=== PATIENT | male | born 1995 | race African-American/Black ===

== ENCOUNTER 2019-06-22 15:30 | Emergency (ER) | payer SELFPAY ==
[2019-06-22 16:36] LABS: Absolute Lymphocytes (CBC) 1.7 K/uL (0.7-4.9); Basophils % 0.7 % (0-1.3); Hematocrit 44.6 % (39.6-49.0); Lymphocytes % 38.4 % (15.3-44.8); MPV 10.5 fL (7.6-11.3); RBC Red Blood Cell Count 4.59 M/uL (4.33-5.43)
[2019-06-22 16:39] LABS: Protime INR 1.11
[2019-06-22 16:55] LABS: Barbiturates NEGATIVE (NEGATIVE); Benzodiazepines NEGATIVE (NEGATIVE); Cocaine NEGATIVE (NEGATIVE); METHAMPHETAM NEGATIVE (NEGATIVE); Methadone NEGATIVE (NEGATIVE); Opiates NEGATIVE (NEGATIVE); Phencyclidine NEGATIVE (NEGATIVE); THC Cannibis POSITIVE (NEGATIVE)
[2019-06-22 17:01] LABS: ALT/SGPT 25 U/L (12-78); AST/SGOT 25 U/L (15-37); Albumin 4.5 g/dL (3.4-5.0); Alkaline Phosphatase 101 U/L (45-117); BUN Blood Urea Nitrogen 10 mg/dL (7-18); Bicarbonate 29 mmol/L (21-32); Bilirubin Direct 0.2 mg/dL (0-0.2); Bilirubin Total 0.5 mg/dL (0.2-1.0); Glucose Level 78 mg/dL (74-106); Potassium 3.6 mmol/L (3.5-5.1); Protein, Total 8.4 g/dL (6.4-8.2); Sodium Level 141 mmol/L (136-145)
[2019-06-22 17:26] LABS: Blood Morphology Comment NOT SEEN (NOT SEEN); Platelet Estimate DECR; Urine White Blood Cell Casts OK
[2019-06-22 18:13] LABS: Urine Blood NEGATIVE (NEG); Urine Glucose NEGATIVE (NEG); Urine Protein NEGATIVE (NEG); Urine Specific Gravity 1.025 (1.005-1.030); Urine pH 6.5 (5.0-7.0)
[2019-06-22] MEDS ORDERED: ARIPiprazole 5 MG TAB ONE (18:24)
[2019-06-22] MEDS ORDERED: TRAZODONE 50 MG TABLET PO ONE (18:30)
--- NOTE | 2019-06-23 08:59 | ER ---
Nurse's Notes [facility] Name: Lizandro Miles Age: 24 yrs Sex: Male : 1995 Arrival Date: 06/22/2019 Time: 15:57 Bed 19 Private MD: Diagnosis: Bipolar disorder;Major depressive disorder, recurrent Presentation: 06/22 15:57 Presenting complaint: Patient states: Pt states "I've been having thoughts about aa5 hurting myself ever since I got out of care home back in April and they couldn't fill my Wellbutrin, they just filled my Zoloft". EMS states "the pt's girlfriend called 911 because they were arguing, pt then reported suicidal thoughts and was brought here". 15:57 Transition of care: patient was not received from another setting of care. Onset of aa5 symptoms was 2018. Risk Assessment: Do you want to hurt yourself or someone else? Patient reports desire/thoughts of hurting themselves or someone else. Provider notified. Initial Sepsis Screen: Does the patient meet any 2 criteria? No. Patient's initial sepsis screen is negative. Does the patient have a suspected source of infection? No. Patient's initial sepsis screen is negative. Care prior to arrival: None. 15:57 Acuity: RAFAEL 2 aa5 15:57 Method Of Arrival: EMS: [facility] aa5 Historical: - Allergies: 15:57 Iodine; aa5 15:57 seafood; aa5 - PMHx: 15:57 Schizophrenia; Bipolar disorder; Depression; Anxiety; aa5 - Immunization history:: Adult Immunizations up to date. - Social history:: Smoking status: Patient uses tobacco products, smokes one pack cigarettes per day. Patient uses street drugs, marijuana. - Ebola Screening: : No symptoms or risks identified at this time. Screenin:00 Abuse screen: Denies threats or abuse. Nutritional screening: No deficits noted. aa5 Tuberculosis screening: No symptoms or risk factors identified. Fall Risk None identified. Assessment: 16:00 General: Appears comfortable, Behavior is calm, cooperative. Pain: Denies pain. Neuro: aa5 Level of Consciousness is awake, alert, obeys commands, Oriented to person, place, time, situation. Cardiovascular: Heart tones S1 S2 present Rhythm is regular. Respiratory: Airway is patent Respiratory effort is even, unlabored, Respiratory pattern is regular, symmetrical. GI: Abdomen is flat, non-distended, Bowel sounds present X 4 quads. Abd is soft and non tender X 4 quads. : No signs and/or symptoms were reported regarding the genitourinary system. EENT: No signs and/or symptoms were reported regarding the EENT system. Derm: Skin is dry, Skin is normal, Skin temperature is warm. Musculoskeletal: Range of motion: intact in all extremities. 17:00 Neuro: Level of Consciousness is awake, alert, obeys commands, Oriented to person, aa5 place, time, situation. Respiratory: Airway is patent Respiratory effort is even, unlabored, Respiratory pattern is regular, symmetrical. Derm: Skin is dry, Skin is normal, Skin temperature is warm. 17:15 Reassessment: Pt's belongings given to security for safe keeping at this time (shoes, aa5 pants, shirt, wallet, and phone). Witnessed by Ayala Ortiz RN (see pt's paper chart). . 18:00 Reassessment: PA updated pt about POC, psychiatrist will evaluate patient in the aa5 morning, pt verbalizes understanding. . 19:00 Reassessment: Patient appears in no apparent distress at this time. Patient and/or family updated on plan of care and expected duration. Pain level reassessed. Patient is alert, oriented x 3, equal unlabored respirations, skin warm/dry/pink. SItter at bedside. 20:00 Reassessment: Patient appears in no apparent distress at this time. No changes from previously documented assessment. Patient and/or family updated on plan of care and expected duration. Pain level reassessed. Patient is alert, oriented x 3, equal unlabored respirations, skin warm/dry/pink. SItter at bedside. 21:00 Reassessment: Patient appears in no apparent distress at this time. No changes from previously documented assessment. Patient and/or family updated on plan of care and expected duration. Pain level reassessed. Patient is alert, oriented x 3, equal unlabored respirations, skin warm/dry/pink. Sitter at bedside. 22:00 Reassessment: Patient appears in no apparent distress at this time. No changes from previously documented assessment. Patient and/or family updated on plan of care and expected duration. Pain level reassessed. Patient is alert, oriented x 3, equal unlabored respirations, skin warm/dry/pink. Sitter at bedside, Pt sleeping well no signs of distress noted. 23:00 Reassessment: Patient appears in no apparent distress at this time. No changes from previously documented assessment. Patient and/or family updated on plan of care and expected duration. Pain level reassessed. Patient is alert, oriented x 3, equal unlabored respirations, skin warm/dry/pink. Sitter at bedside, Pt sleeping well no signs of distress noted. 06/23 00:00 Reassessment: Patient appears in no apparent distress at this time. No changes from previously documented assessment. Patient and/or family updated on plan of care and expected duration. Pain level reassessed. Patient is alert, oriented x 3, equal unlabored respirations, skin warm/dry/pink. Sitter at bedside, Pt sleeping well no signs of distress noted. 01:00 Reassessment: Patient appears in no apparent distress at this time. No changes from previously documented assessment. Patient and/or family updated on plan of care and expected duration. Pain level reassessed. Patient is alert, oriented x 3, equal unlabored respirations, skin warm/dry/pink. Sitter at bedside, Pt sleeping well no signs of distress noted. 02:00 Reassessment: Patient appears in no apparent distress at this time. No changes from previously documented assessment. Patient and/or family updated on plan of care and expected duration. Pain level reassessed. Patient is alert, oriented x 3, equal unlabored respirations, skin warm/dry/pink. SItter at bedside. 03:00 Reassessment: Patient appears in no apparent distress at this time. No changes from previously documented assessment. Patient and/or family updated on plan of care and expected duration. Pain level reassessed. Patient is alert, oriented x 3, equal unlabored respirations, skin warm/dry/pink. SItter at bedside. 04:00 Reassessment: Patient appears in no apparent distress at this time. No changes from previously documented assessment. Patient and/or family updated on plan of care and expected duration. Pain level reassessed. Patient is alert, oriented x 3, equal unlabored respirations, skin warm/dry/pink. Sitter at bedside, Pt sleeping well no signs of distress noted. 05:00 Reassessment: Patient appears in no apparent distress at this time. No changes from previously documented assessment. Patient and/or family updated on plan of care and expected duration. Pain level reassessed. Patient is alert, oriented x 3, equal unlabored respirations, skin warm/dry/pink. Sitter at bedside, Pt sleeping well no signs of distress noted. 06:00 Reassessment: Patient appears in no apparent distress at this time. No changes from previously documented assessment. Patient and/or family updated on plan of care and expected duration. Pain level reassessed. Patient is alert, oriented x 3, equal unlabored respirations, skin warm/dry/pink. Sitter at bedside, Pt sleeping well no signs of distress noted. 07:10 Reassessment: Patient appears in no apparent distress at this time. Patient and/or em family updated on plan of care and expected duration. Pain level reassessed. Patient is alert, oriented x 3, equal unlabored respirations, skin warm/dry/pink. reports feeling better than yesterday, denies feeling HI/SI, sitter at bedside. 08:30 Reassessment: received breakfast tray at this time. em 08:44 Reassessment: Patient appears in no apparent distress at this time. Dr. Padgett at em bedside. Psych: 06/22 15:57 Subjective: Delusions are denied, Hallucinations are denied Having thoughts of suicide. aa5 Objective: Patient is cooperative, Speech is normal, Affect is appropriate. Interventions: Removed personal items and placed in bag. Patient placed in hospital gown. Searched person for dangerous items. Suicide Risk Assessment: Sad Person Scale: Sex of patient: Male: Score 1 point. Age of patient: Score 1 point if patient 15-34. Depression: Score 1 point if signs of depression are present. Previous Attempt: Score 0 point if patient has not previously attempted suicide. Substance Abuse: Score 1 point if patient abuses alcohol or drugs. Rational Thinking: Score 0 point if patient has rational thinking. Social Support: Score 0 if social support is present/available. Organized Plan: Score 1 point if patient had a plan in place. Relationship: Score 0 point if patient has a spouse or domestic partner. Chronic Sickness: Score 0 point if patient does not have a chronic illness, debilitating, or severe disorder. TOTAL POINTS: If total points are 3-4, proposed clinical action is close follow-up/consider hospitalization. Safety Checks: Personal items have been removed. Door is open. Visitors are present. Patient uses marijuana. Commitment: Patient will be a voluntary commitment. Vital Signs: 16:00 BP 131 / 73; Pulse 75; Resp 16 S; Temp 98.2(O); Pulse Ox 100% on R/A; Weight 86.18 kg aa5 (R); Height 5 ft. 7 in. (170.18 cm) (R); Pain 0/10; 18:00 BP 126 / 85; Pulse 73; Resp 16 S; Pulse Ox 100% on R/A; Pain 0/10; aa5 22:00 BP 113 / 75; Pulse 68; Resp 18; Pulse Ox 99% ; 06/23 02:00 BP 115 / 65; Pulse 58; Resp 18; Pulse Ox 99% ; wh 05:00 BP 124 / 64; Pulse 60; Resp 18; Temp 97.9; Pulse Ox 99% ; Pain 0/10; cm6 09:00 BP 134 / 73; Pulse 76; Resp 17; Temp 98.3(O); Pulse Ox 98% on R/A; [facility] 06/22 16:00 Body Mass Index 29.76 (86.18 kg, 170.18 cm) [facility] ED Course: 06/22 15:57 Patient arrived in ED. 5 15:57 Jelena Adams, RN is Primary Nurse. aa5 16:00 EKG done, by java tech. reviewed by Dm Santana MD. 3 16:00 Safety checks: Items removed: yes. Door open/sign placed on door: yes. Family/friend mh5 present: no. Sitter present: Yes. Patient has correct armband on for positive identification. Placed in gown. Bed in low position. Warm blanket given. 16:04 Eliu Barry NP is PHCP. pm1 16:04 Dm Santana MD is Attending Physician. pm1 16:08 Initial lab(s) drawn, by me, held in ED. Urine collected: clean catch specimen, clear. 5 16:15 Safety checks: Items removed: yes. Door open/sign placed on door: yes. Family/friend mh5 present: no. Sitter present: Yes. 16:30 Safety checks: Items removed: yes. Door open/sign placed on door: yes. Family/friend mh5 present: no. Sitter present: Yes. 16:31 Acetaminophen Sent. mh5 16:31 Basic Metabolic Panel Sent. mh5 16:31 CBC with Diff Sent. mh5 16:31 ETOH Level Sent. mh5 16:31 Hepatic Function Sent. mh5 16:31 PT-INR Sent. mh5 16:31 Ptt, Activated Sent. mh5 16:31 Salicylate Sent. mh5 16:31 Urine Drug Screen Sent. mh5 16:31 sent to lab. mh5 16:36 Triage completed. aa5 16:45 Safety checks: Items removed: yes. Door open/sign placed on door: yes. Family/friend mh5 present: no. Sitter present: Yes. 17:00 Safety checks: Items removed: yes. Door open/sign placed on door: yes. Family/friend mh5 present: no. Sitter present: Yes. 17:15 Safety checks: Items removed: yes. Door open/sign placed on door: yes. Family/friend mh5 present: no. Sitter present: Yes. 17:30 Safety checks: Items removed: yes. Door open/sign placed on door: yes. Family/friend mh5 present: no. Sitter present: Yes. 17:45 Safety checks: Items removed: yes. Door open/sign placed on door: yes. Family/friend mh5 present: no. Sitter present: Yes. 18:00 Safety checks: Items removed: yes. Door open/sign placed on door: yes. Family/friend mh5 present: no. Sitter present: Yes. Diet: Patient given a regular meal tray. 18:15 Safety checks: Items removed: yes. Door open/sign placed on door: yes. Family/friend mh5 present: no. Sitter present: Yes. 18:30 Safety checks: Items removed: yes. Door open/sign placed on door: yes. Family/friend mh5 present: no. Sitter present: Yes. 18:45 Safety checks: Items removed: yes. Door open/sign placed on door: yes. Family/friend mh5 present: no. Sitter present: Yes. 18:51 PHCP role handed off by Eliu Barry NP kb 18:51 Casandra Wallis FNP-C is PHCP. kb 19:00 Safety checks: Items removed: yes. Door open/sign placed on door: yes. Family/friend mh5 present: yes. Sitter present: Yes. 19:00 Report given to DAVID Pina. aa5 19:08 Safety checks: Items removed: yes. Door open/sign placed on door: yes. Family/friend cm6 present: yes. Sitter present: Yes. 19:15 Arm band placed on. wh 19:23 Safety checks: Items removed: yes. Door open/sign placed on door: yes. Family/friend cm6 present: yes. Sitter present: Yes. 19:38 Safety checks: Items removed: yes. Door open/sign placed on door: yes. Family/friend cm6 present: no. Sitter present: Yes. 19:53 Safety checks: Items removed: yes. Door open/sign placed on door: yes. Family/friend cm6 present: no. Sitter present: Yes. 20:08 Safety checks: Items removed: yes. Door open/sign placed on door: yes. Family/friend cm6 present: no. Sitter present: Yes. 20:23 Safety checks: Items removed: yes. Door open/sign placed on door: yes. Family/friend cm6 present: no. Sitter present: Yes. 20:28 Safety checks: Items removed: yes. Door open/sign placed on door: yes. Family/friend cm6 present: no. Sitter present: Yes. 20:46 Safety checks: Items removed: yes. Door open/sign placed on door: yes. Family/friend cm6 present: no. Sitter present: Yes. 21:00 Safety Checks: Personal items have been removed. The door is open or patient has been cv placed in a hallway bed/chair. Sitter present at this time. 21:00 Safety checks: Items removed: yes. Door open/sign placed on door: yes. Family/friend cm6 present: no. Sitter present: Yes. 21:15 Safety Checks: Personal items have been removed. The door is open or patient has been cv placed in a hallway bed/chair. Sitter present at this time. 21:15 Safety checks: Items removed: yes. Door open/sign placed on door: yes. Family/friend cm6 present: no. Sitter present: Yes. 21:30 Safety Checks: Personal items have been removed. The door is open or patient has been cv placed in a hallway bed/chair. Sitter present at this time. 21:30 Safety checks: Items removed: yes. Door open/sign placed on door: yes. Family/friend cm6 present: no. Sitter present: Yes. 21:40 Safety Checks: Personal items have been removed. The door is open or patient has been cv placed in a hallway bed/chair. Sitter present at this time. 21:45 Safety checks: Items removed: yes. Door open/sign placed on door: yes. Family/friend cm6 present: no. Sitter present: Yes. 21:57 Safety Checks: Personal items have been removed. The door is open or patient has been cv placed in a hallway bed/chair. There are no family/friend visitors at this time Sitter present at this time. 22:00 Safety checks: Items removed: yes. Door open/sign placed on door: yes. Family/friend cm6 present: no. Sitter present: Yes. 22:14 Safety Checks: Personal items have been removed. The door is open or patient has been cv placed in a hallway bed/chair. Sitter present at this time. 22:15 Safety checks: Items removed: yes. Door open/sign placed on door: yes. Family/friend cm6 present: no. Sitter present: Yes. 22:30 Safety checks: Items removed: yes. Door open/sign placed on door: yes. Family/friend cm6 present: no. Sitter present: Yes. 22:45 Safety Checks: Personal items have been removed. The door is open or patient has been wh placed in a hallway bed/chair. There are no family/friend visitors at this time Sitter present at this time. 22:45 Safety checks: Items removed: yes. Door open/sign placed on door: yes. Family/friend cm6 present: no. Sitter present: Yes. 23:00 Safety Checks: Personal items have been removed. The door is open or patient has been wh placed in a hallway bed/chair. There are no family/friend visitors at this time Sitter present at this time. 23:00 Safety checks: Items removed: yes. Door open/sign placed on door: yes. Family/friend cm6 present: no. Sitter present: Yes. 23:15 Safety Checks: Personal items have been removed. The door is open or patient has been wh placed in a hallway bed/chair. There are no family/friend visitors at this time Sitter present at this time. 23:15 Safety checks: Items removed: yes. Door open/sign placed on door: yes. Family/friend cm6 present: no. Sitter present: Yes. 23:30 Safety Checks: Personal items have been removed. The door is open or patient has been wh placed in a hallway bed/chair. There are no family/friend visitors at this time Sitter present at this time. 23:30 Safety checks: Items removed: yes. Door open/sign placed on door: yes. Family/friend cm6 present: no. Sitter present: Yes. 23:45 Safety checks: Items removed: yes. Door open/sign placed on door: yes. Family/friend cm6 present: no. Sitter present: Yes. 23:51 Safety Checks: Personal items have been removed. The door is open or patient has been wh placed in a hallway bed/chair. There are no family/friend visitors at this time Sitter present at this time. 06/23 00:00 Safety Checks: Personal items have been removed. The door is open or patient has been wh placed in a hallway bed/chair. There are no family/friend visitors at this time Sitter present at this time. 00:00 Safety checks: Items removed: yes. Door open/sign placed on door: yes. Family/friend cm6 present: no. Sitter present: Yes. 00:15 Safety Checks: Personal items have been removed. The door is open or patient has been wh placed in a hallway bed/chair. There are no family/friend visitors at this time Sitter present at this time. 00:15 Safety checks: Items removed: yes. Door open/sign placed on door: yes. Family/friend cm6 present: no. Sitter present: Yes. 00:30 Safety Checks: Personal items have been removed. The door is open or patient has been wh placed in a hallway bed/chair. There are no family/friend visitors at this time Sitter present at this time. 00:30 Safety checks: Items removed: yes. Door open/sign placed on door: yes. Family/friend cm6 present: no. Sitter present: Yes. 00:45 Safety Checks: Personal items have been removed. The door is open or patient has been wh placed in a hallway bed/chair. There are no family/friend visitors at this time Sitter present at this time. 00:45 Safety checks: Items removed: yes. Door open/sign placed on door: yes. Family/friend cm6 present: no. Sitter present: Yes. 01:00 Safety Checks: Personal items have been removed. The door is open or patient has been wh placed in a hallway bed/chair. There are no family/friend visitors at this time Sitter present at this time. 01:00 Safety checks: Items removed: yes. Door open/sign placed on door: yes. Family/friend cm6 present: no. Sitter present: Yes. 01:15 Safety checks: Items removed: yes. Door open/sign placed on door: yes. Family/friend cm6 present: no. Sitter present: Yes. 01:30 Safety Checks: The door is open or patient has been placed in a hallway bed/chair. There are no family/friend visitors at this time Sitter present at this time. 01:30 Safety checks: Items removed: yes. Door open/sign placed on door: yes. Family/friend cm6 present: no. Sitter present: Yes. 01:45 Safety Checks: The door is open or patient has been placed in a hallway bed/chair. There are no family/friend visitors at this time Sitter present at this time. 01:45 Safety checks: Items removed: yes. Door open/sign placed on door: yes. Family/friend cm6 present: no. Sitter present: Yes. 02:00 Safety Checks: The door is open or patient has been placed in a hallway bed/chair. There are no family/friend visitors at this time Sitter present at this time. 02:00 Safety checks: Items removed: yes. Door open/sign placed on door: yes. Family/friend cm6 present: no. Sitter present: Yes. 02:12 Attending Physician role handed off by Dm Santana MD [facility] 02:12 Americo Miles MD is Attending Physician. rex 02:15 Safety Checks: The door is open or patient has been placed in a hallway bed/chair. There are no family/friend visitors at this time Sitter present at this time. 02:15 Safety checks: Items removed: yes. Door open/sign placed on door: yes. Family/friend cm6 present: no. Sitter present: Yes. 02:30 Safety Checks: The door is open or patient has been placed in a hallway bed/chair. There are no family/friend visitors at this time Sitter present at this time. 02:30 Safety checks: Items removed: yes. Door open/sign placed on door: yes. Family/friend cm6 present: no. Sitter present: Yes. 02:45 Safety Checks: The door is open or patient has been placed in a hallway bed/chair. There are no family/friend visitors at this time Sitter present at this time. 02:45 Safety checks: Items removed: yes. Door open/sign placed on door: yes. Family/friend cm6 present: no. Sitter present: Yes. 03:00 Safety Checks: The door is open or patient has been placed in a hallway bed/chair. There are no family/friend visitors at this time Sitter present at this time. 03:00 Safety checks: Items removed: yes. Door open/sign placed on door: yes. Family/friend cm6 present: no. Sitter present: Yes. 03:15 Safety Checks: The door is open or patient has been placed in a hallway bed/chair. There are no family/friend visitors at this time Sitter present at this time. 03:15 Safety checks: Items removed: yes. Door open/sign placed on door: yes. Family/friend cm6 present: no. Sitter present: Yes. 03:30 Safety Checks: The door is open or patient has been placed in a hallway bed/chair. There are no family/friend visitors at this time Sitter present at this time. 03:30 Safety checks: Items removed: yes. Door open/sign placed on door: yes. Family/friend cm6 present: no. Sitter present: Yes. 03:45 Safety Checks: The door is open or patient has been placed in a hallway bed/chair. There are no family/friend visitors at this time Sitter present at this time. 03:45 Safety checks: Items removed: yes. Door open/sign placed on door: yes. Family/friend cm6 present: no. Sitter present: Yes. 04:00 Safety Checks: The door is open or patient has been placed in a hallway bed/chair. There are no family/friend visitors at this time Sitter present at this time. 04:00 Safety checks: Items removed: yes. Door open/sign placed on door: yes. Family/friend cm6 present: no. Sitter present: Yes. 04:15 Safety Checks: The door is open or patient has been placed in a hallway bed/chair. There are no family/friend visitors at this time Sitter present at this time. 04:15 Safety checks: Items removed: yes. Door open/sign placed on door: yes. Family/friend cm6 present: no. Sitter present: Yes. 04:30 Safety Checks: The door is open or patient has been placed in a hallway bed/chair. There are no family/friend visitors at this time Sitter present at this time. 04:30 Safety checks: Items removed: yes. Door open/sign placed on door: yes. Family/friend cm6 present: no. Sitter present: Yes. 04:45 Safety checks: Items removed: yes. Door open/sign placed on door: yes. Family/friend cm6 present: no. Sitter present: Yes. 05:00 Safety checks: Items removed: yes. Door open/sign placed on door: yes. Family/friend cm6 present: no. Sitter present: Yes. 05:15 Safety checks: Items removed: yes. Door open/sign placed on door: yes. Family/friend cm6 present: no. Sitter present: Yes. 05:30 Safety checks: Items removed: yes. Door open/sign placed on door: yes. Family/friend cm6 present: no. Sitter present: Yes. 05:45 Safety checks: Items removed: yes. Door open/sign placed on door: yes. Family/friend cm6 present: no. Sitter present: Yes. 06:00 Safety checks: Items removed: yes. Door open/sign placed on door: yes. Family/friend cm6 present: no. Sitter present: Yes. 06:15 Safety checks: Items removed: yes. Door open/sign placed on door: yes. Family/friend cm6 present: no. Sitter present: Yes. 06:30 Safety checks: Items removed: yes. Door open/sign placed on door: yes. Family/friend cm6 present: no. Sitter present: Yes. 06:45 Safety checks: Items removed: yes. Door open/sign placed on door: yes. Family/friend cm6 present: no. Sitter present: Yes. 07:00 Safety checks: Items removed: yes. Door open/sign placed on door: yes. Family/friend mh5 present: no. Sitter present: Yes. 07:15 Safety checks: Items removed: yes. Door open/sign placed on door: yes. Family/friend mh5 present: no. Sitter present: Yes. 07:30 Safety checks: Items removed: yes. Door open/sign placed on door: yes. Family/friend mh5 present: no. Sitter present: Yes. 07:45 Safety checks: Items removed: yes. Door open/sign placed on door: yes. Family/friend mh5 present: no. Sitter present: Yes. 08:00 Safety checks: Items removed: yes. Door open/sign placed on door: yes. Family/friend mh5 present: yes. Sitter present: Yes. 08:15 Safety checks: Items removed: yes. Door open/sign placed on door: yes. Family/friend mh5 present: yes. Other: DR PADGETT PSYCHIATRIST IN WITH PATIENT . Sitter present: Yes. 08:30 Safety checks: Items removed: yes. Door open/sign placed on door: yes. Family/friend mh5 present: yes. Sitter present: Yes. Diet: Patient given a regular meal tray. 08:45 Safety checks: Items removed: yes. Door open/sign placed on door: yes. Family/friend mh5 present: yes. Sitter present: Yes. 08:57 [facility] role handed off by Casandra Wallis FNP-C [facility] 08:57 James Carmichael PA is PHCP. [facility] 09:00 Safety checks: Items removed: yes. Door open/sign placed on door: yes. Family/friend mh5 present: yes. Sitter present: Yes. 09:21 No provider procedures requiring assistance completed. Patient did not have IV access em during this emergency room visit. Administered Medications: 06/22 18:50 Drug: ARIPiprazole 2.5 mg Route: PO; aa5 06/23 02:41 Follow up: Response: No adverse reaction 06/22 18:51 Drug: traZODONE 50 mg Route: PO; aa5 06/23 02:41 Follow up: Response: No adverse reaction Outcome: 08:58 Discharge ordered by . stephanie 09:21 Discharged to home ambulatory, with family. em 09:21 Condition: good 09:21 Discharge instructions given to patient, family, Instructed on discharge instructions, follow up and referral plans. medication usage, Demonstrated understanding of instructions, follow-up care, medications, Prescriptions given X 3. 09:22 Patient left the ED. em Signatures: Casandra Wallis, SNUFF CONTAINER INSPECTOR-C SNUFF CONTAINER INSPECTOR-Ckb Americo Miles MD MD cha Mickail, Joel, PA PA Chato Cortez, ACCOUNT SERVICE REPRESENTATIVE ACCOUNT SERVICE REPRESENTATIVE em Jelena Adams RN RN aa5 Eliu Barry, CNC PROGRAMMER CNC PROGRAMMER pm1 Ellie Suarez 5 Susanna, Silvana Annie Harrington sm3 Kylie Hernandez cm6 Eliza Jimenez Corrections: (The following items were deleted from the chart) 06/22 17:48 16:00 Derm: Skin is pink, warm \\T\\ dry. aa5 aa5 19:27 07:23 Safety checks: Items removed: yes. Door open/sign placed on door: yes. cm6 Family/friend present: yes. Sitter present: Yes. cm6 21:20 21:17 EKG completed in triage. Results shown to MD. marilia cv 22:35 21:02 Safety checks: Items removed: yes. Door open/sign placed on door: yes. cm6 Family/friend present: no. Sitter present: Yes. cm6 06/23 06:09 05:23 Safety checks: Items removed: yes. Door open/sign placed on door: yes. cm6 Family/friend present: no. Sitter present: Yes. cm6 06:51 06:42 Safety checks: Items removed: yes. Door open/sign placed on door: yes. cm6 Family/friend present: no. Sitter present: Yes. cm6 08:45 07:10 Reassessment: Patient appears in no apparent distress at this time. Patient em and/or family updated on plan of care and expected duration. Pain level reassessed. Patient is alert, oriented x 3, equal unlabored respirations, skin warm/dry/pink. reports feeling better than yesterday, denies feeling HI/SI em 09:10 08:15 Safety checks: Items removed: yes. Door open/sign placed on door: yes. [facility] Family/friend present: yes. Sitter present: Yes. [facility]
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
[2019-06-23 09:51] VITALS: BP 134/73; TEMP 98.3; O2SAT 98
--- NOTE | 2019-06-23 11:59 | EKG ---
Test Date: 2019-06-22 Test Time: 15:50:27 Channel Specialist: ARRON MEASUREMENT RESULTS: Intervals: Rate: 71 IA: 132 QRSD: 80 QT: 342 QTc: 371 Qulin: P: 37 IA: 132 QRS: 53 T: 22 INTERPRETIVE STATEMENTS: Sinus rhythm with marked sinus arrhythmia Otherwise normal ECG No previous ECG available for comparison Electronically Signed On 06-23-19 11:57:03 SPRING PRODUCTION SUPERVISOR by Kenton Gilbert
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
== END 2019-06-23 09:22 | disposition home or self-care (01) ==
LOC: ER 15:30
DX: F33.9 Major depressive disorder, recurrent, unspecified (principal); F17.210 Nicotine dependence, cigarettes, uncomplicated; F12.99 Cannabis use, unspecified with unspecified cannabis-induced disorder; Z72.89 Other problems related to lifestyle; Z91.048 Other nonmedicinal substance allergy status
CPT/HCPCS: 36415; 80048; 80076; 80307; 80320; 80329; 81003; 85025; 85610; 85730; 93005; 99284

== ENCOUNTER 2019-07-14 15:07 | Emergency (ER) | payer SELFPAY ==
--- OUTSIDE RECORDS SUMMARY | 2019-07-14 15:09 | XMS REPORT ---
:1995 [facility] Address [address] [place] [address] Care Team Providers Name Role Phone MELANIE ANDERSON Unavailable Unavailable Problems This patient has no known problems. Allergies, Adverse Reactions, Alerts This patient has no known allergies or adverse reactions. Medications This patient has no known medications. Encounters Start End Encounter Admission Attending Care Care Encounter Date/Time Date/Time Type Type Clinicians Facility Department ID 2018-10-21 2018-10-21 Emergency [facility] [id number] 12:53:56 12:53:56 2018-10-21 2018-10-21 Emergency [facility] [id number] 11:34:31 11:34:31 2018-10-21 2018-10-21 Emergency [facility] [id number] 10:39:00 10:39:00 2018-09-05 2018-09-05 Emergency [facility] [id number] 23:07:00 23:07:00 2018-08-29 2018-08-29 Emergency [facility] [id number] 02:21:33 02:21:33 Results Test Description Test Time Test Comments Text Results Atomic Results Result Comments XR Ribs w/ PA Chest 2018-07-08 20:26:37 Patient: EDDY CARO Bilateral Date/Time07/08/2018 19:51 CSTReason for ExamInjuryReportChest and bilateral rib series, 4 imagesLOCATION CODE: R 16HISTORY: Chest painCOMPARISON: NoneFINDINGS:The heart size is normal and the lungs are clear. There is no evidence of pleural effusion, pulmonary edema or patchy lobar consolidation. The bones are intact.IMPRESSION:1. No acute cardiopulmonary disease Final Dictated by: MD Winters Roman PDictated DT/TM: 07/08/2018 8:26 pmSigned by: MD Winters Roman PSigned (Electronic Signature): 07/08/2018 8:26 pm XR Chest 1 View Frontal 2018-05-07 01:17:17 Patient: EDDY CARO Date/Time05/07/2018 01:10 CDTReason for ExamChest painReportChest, one viewLOCATION CODE: R 16HISTORY: Chest painCOMPARISON: NoneFINDINGS:The heart size is normal and the lungs are clear. There is no evidence of pleural effusion, pulmonary edema or patchy lobar consolidation.IMPRESSION:1. No acute cardiopulmonary disease Final Dictated by: MD Winters Roman PDictated DT/TM: 05/07/2018 1:17 amSigned by: MD Winters Roman PSigned (Electronic Signature): 05/07/2018 1:17 am CBC W/PLT COUNT & AUTO DIFFERENTIAL 2017-07-31 01:17:00 Test Item Value Reference Range Comments WHITE BLOOD CELL COUNT (BEAKER) (test ynjj=329) 7.3 K/ L 4.0-10.0 RED BLOOD CELL COUNT (BEAKER) (test mrqt=581) 4.59 M/ L 4.20-5.80 HEMOGLOBIN (BEAKER) (test cdnq=913) 14.5 GM/DL 13.0-16.8 HEMATOCRIT (BEAKER) (test eobz=300) 43.2 % 40.0-50.0 MEAN CORPUSCULAR VOLUME (BEAKER) (test pivp=885) 93.9 fL 82.0-98.0 MEAN CORPUSCULAR HEMOGLOBIN (BEAKER) (test lbog=191) 31.6 pg 27.0-33.0 MEAN CORPUSCULAR HEMOGLOBIN CONC (BEAKER) (test uobi=570) 33.6 GM/DL 32.0- 36.0 RED CELL DISTRIBUTION WIDTH (BEAKER) (test ktbn=320) 12.5 % 10.3-14.2 PLATELET COUNT (BEAKER) (test flpr=675) 344 K/CU MM 150-430 MEAN PLATELET VOLUME (BEAKER) (test qaue=470) 9.3 fL 6.5-10.5 (MANUAL DIFFERENTIAL)2017-07-31 01:17:00 Test Item Value Reference Range Comments NEUTROPHILS - REL (DIFF) (BEAKER) (test maob=8642) 42 % LYMPHOCYTES - REL (DIFF) (BEAKER) (test blvb=9922) 50 % MONOCYTES - REL (DIFF) (BEAKER) (test znnn=3807) 8 % NEUTROPHILS - ABS (DIFF) (BEAKER) (test ooeq=8009) 3.07 K/ L 1.80-8.00 LYMPHOCYTES - ABS (DIFF) (BEAKER) (test ufny=8129) 3.65 K/ L 1.48-4.50 MONOCYTES - ABS (DIFF) (BEAKER) (test fqub=2570) 0.58 K/ L 0.00-1.30 TOTAL COUNTED (BEAKER) (test wzpq=4606) 100 WBC MORPHOLOGY (BEAKER) (test tyzp=998) Normal PLT MORPHOLOGY (BEAKER) (test eejl=442) Normal RBC MORPHOLOGY (BEAKER) (test ejfi=819) Normal [id number] 00:34:00 Test Item Value Reference Range Comments ETHANOL (BEAKER) (test cvuw=714) < mg/dL <=10 CREATINE KINASE (CK), TOTAL AND [id number] 00:22:00 Test Item Value Reference Range Comments CREATINE KINASE TOTAL (BEAKER) (test uwyd=331) 628 U/L 40-250 CREATINE KINASE-MB (BEAKER) (test mmmw=309) 2.5 ng/mL 0.0-4.9 CREATINE KINASE-MB INDEX (BEAKER) (test uosv=795) 0.4 % CK-MB Reference Range:<5 Normal5-10 Borderline>10 AbnormalRAPID DRUG SCREEN, [id number] 00:15:00 Test Item Value Reference Range Comments BARBITURATE URINE (BEAKER) (test tqbm=702) Negative Negative BENZODIAZEPINE SCREEN URINE (BEAKER) (test Negative Negative fvut=641) COCAINE (METAB.) SCREEN (BEAKER) (test oqop=5633) Negative Negative OPIATE SCREEN URINE (BEAKER) (test uqyq=296) Negative Negative CANNABINOID SCREEN URINE (BEAKER) (test clsb=126) Positive Negative AMPH/METHAMPH SCREEN (BEAKER) (test dmrf=8159) Negative Negative PHENCYCLIDINE SCREEN URINE (BEAKER) (test qffg=187) Negative Negative DRUG CUTOFF CONC.Cocaine 300 ng/mL Cannabinoid 50 ng/mLBenzodiazepine 200 ng/mLBarbiturate 200 ng/ mLPhencyclidine 25 ng/mLOpiate 300 ng/mLMethadone 300 ng/mLAmphetamine/ 1000 ng/mL MethamphetamineThis assay provides an unconfirmed qualitative test result for the clinical management of patients in emergency situations. Chain of custody not maintained. Some fxbq-hbw-vdrwzbs medications, as well as adulterants, may cause inaccurate results. Clinical correlation should be applied. A more comprehensivedrug screen or confirmation of a detected drug may be performed upon request.ACETAMINOPHEN [id number] 00:12:00 Test Item Value Reference Range Comments ACETAMINOPHEN LEVEL (BEAKER) (test ishi=376) < ug/mL 10.0-30.0 URINALYSIS W/ [id number] 00:11:00 Test Item Value Reference Range Comments COLOR (BEAKER) (test kxfa=736) Yellow CLARITY (BEAKER) (test xrkd=961) Clear SPECIFIC GRAVITY UA (BEAKER) (test gnei=803) 1.025 1.001-1.035 PH UA (BEAKER) (test jnqk=047) 6.0 5.0-8.0 PROTEIN UA (BEAKER) (test rutj=235) Negative Negative GLUCOSE UA (BEAKER) (test wrkp=088) Negative Negative KETONES UA (BEAKER) (test vfmq=999) Negative Negative BILIRUBIN UA (BEAKER) (test dcuv=755) Negative Negative BLOOD UA (BEAKER) (test uhjt=984) Negative Negative NITRITE UA (BEAKER) (test pjmj=941) Negative Negative LEUKOCYTE ESTERASE UA (BEAKER) (test ngmg=532) Negative Negative UROBILINOGEN UA (BEAKER) (test khyt=489) 0.2 mg/dL 0.2-1.0 BACTERIA (BEAKER) (test cbbe=436) Rare RBC UA-MANUAL (BEAKER) (test kxps=5257) <5 /HPF WBC UA-MANUAL (BEAKER) (test xpga=5009) 10-20 /HPF SQUAMOUS EPITHELIAL MANUAL (BEAKER) (test <5 /HPF pjrp=5593) SOURCE(BEAKER) (test csda=5815) HEPATIC FUNCTION [id number] 00:11:00 Test Item Value Reference Range Comments TOTAL PROTEIN (BEAKER) (test 8.5 gm/dL 6.0-8.5 Specimen slightly hemolyzed zlpb=981) ALBUMIN (BEAKER) (test 4.3 g/dL 3.5-5.0 Specimen slightly hemolyzed rkvd=2262) BILIRUBIN TOTAL (BEAKER) (test 0.3 mg/dL 0.1-1.2 Specimen slightly hemolyzed rglx=427) BILIRUBIN DIRECT (BEAKER) (test 0.1 mg/dL 0.0-0.4 Specimen slightly hemolyzed qbot=799) ALKALINE PHOSPHATASE (BEAKER) 98 U/L 30-115 (test yohq=877) AST (SGOT) (BEAKER) (test 32 U/L 5-40 Specimen slightly hemolyzed botu=425) ALT (SGPT) (BEAKER) (test 24 U/L 5-50 Specimen slightly hemolyzed jfpk=327) SALICYLATE [id number] 00:11:00 Test Item Value Reference Range Comments SALICYLATE LEVEL (BEAKER) (test etse=346) 1.7 mg/dL 20.0-30.0 BASIC METABOLIC [id number] 00:09:00 Test Item Value Reference Range Comments SODIUM (BEAKER) (test 142 meq/L 135-148 zdac=228) POTASSIUM (BEAKER) (test 4.0 meq/L 3.6-5.5 Specimen slightly hqmy=328) hemolyzed CHLORIDE (BEAKER) (test 108 meq/L 98-106 qqai=943) CO2 (BEAKER) (test 21 meq/L 20-29 plkz=331) BLOOD UREA NITROGEN 10 mg/dL 10-26 (BEAKER) (test ewla=357) CREATININE (BEAKER) (test 0.90 mg/dL 0.50-1.20 Specimen slightly bksa=066) hemolyzed GLUCOSE RANDOM (BEAKER) 90 mg/dL 70-110 (test pyol=606) CALCIUM (BEAKER) (test 9.5 mg/dL 8.5-10.5 jmne=002) EGFR (BEAKER) (test 130 mL/min/1.73 sq m ESTIMATED GFR IS NOT brjy=0618) ACCURATE CREATININE CLEARANCE IN PREDICTING GLOMERULAR FILTRATION RATE. ESTIMATED GFR IS NOT APPLICABLE FOR DIALYSIS PATIENTS.
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
[2019-07-14 17:21] VITALS: BP 111/69; TEMP 98.2; O2SAT 99
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
== END 2019-07-14 16:53 | disposition home or self-care (01) ==
LOC: ER 15:07
DX: R07.9 Chest pain, unspecified (principal); Z91.09 Other allergy status, other than to drugs and biological substances; Z91.013 Allergy to seafood; F17.210 Nicotine dependence, cigarettes, uncomplicated
CPT/HCPCS: 71046; 99284

== ENCOUNTER 2019-07-28 14:31 | Inpatient (IN) | payer SELFPAY ==
--- OUTSIDE RECORDS SUMMARY | 2019-07-28 14:32 | XMS REPORT ---
:1995 [facility] Address [address] [place] [address] Care Team Providers Name Role Phone MELANIE ANDERSON Unavailable Unavailable Problems This patient has no known problems. Allergies, Adverse Reactions, Alerts This patient has no known allergies or adverse reactions. Medications This patient has no known medications. Encounters Start End Encounter Admission Attending Care Care Encounter Date/Time Date/Time Type Type Clinicians Facility Department ID 2018-10-21 2018-10-21 Emergency [facility] [id number] 12:53:56 12:53:56 2018-10-21 2018-10-21 Emergency [facility] [id number] 11:34:31 11:34:31 2018-10-21 2018-10-21 Emergency [facility] [id number] 10:39:00 10:39:00 2018-09-05 2018-09-05 Emergency [facility] [id number] 23:07:00 23:07:00 2018-08-29 2018-08-29 Emergency [facility] [id number] 02:21:33 02:21:33 Results Test Description Test Time [...] Comments WHITE BLOOD CELL COUNT (BEAKER) (test ptfi=597) 7.3 K/ L 4.0-10.0 RED BLOOD CELL COUNT (BEAKER) (test sgis=131) 4.59 M/ L 4.20-5.80 HEMOGLOBIN (BEAKER) (test bfan=848) 14.5 GM/DL 13.0-16.8 HEMATOCRIT (BEAKER) (test spae=846) 43.2 % 40.0-50.0 MEAN CORPUSCULAR VOLUME (BEAKER) (test wifi=512) 93.9 fL 82.0-98.0 MEAN CORPUSCULAR HEMOGLOBIN (BEAKER) (test pshp=544) 31.6 pg 27.0-33.0 MEAN CORPUSCULAR HEMOGLOBIN CONC (BEAKER) (test kwcx=982) 33.6 GM/DL 32.0- 36.0 RED CELL DISTRIBUTION WIDTH (BEAKER) (test rglp=220) 12.5 % 10.3-14.2 PLATELET COUNT (BEAKER) (test bvne=442) 344 K/CU MM 150-430 MEAN PLATELET VOLUME (BEAKER) (test knzn=381) 9.3 fL 6.5-10.5 (MANUAL DIFFERENTIAL)2017-07-31 01:17:00 Test Item Value Reference Range Comments NEUTROPHILS - REL (DIFF) (BEAKER) (test phaj=2644) 42 % LYMPHOCYTES - REL (DIFF) (BEAKER) (test zpth=1190) 50 % MONOCYTES - REL (DIFF) (BEAKER) (test hiss=1589) 8 % NEUTROPHILS - ABS (DIFF) (BEAKER) (test cswn=9700) 3.07 K/ L 1.80-8.00 LYMPHOCYTES - ABS (DIFF) (BEAKER) (test gequ=3203) 3.65 K/ L 1.48-4.50 MONOCYTES - ABS (DIFF) (BEAKER) (test iqob=7773) 0.58 K/ L 0.00-1.30 TOTAL COUNTED (BEAKER) (test uulr=0175) 100 WBC MORPHOLOGY (BEAKER) (test qcsb=029) Normal PLT MORPHOLOGY (BEAKER) (test wgyz=283) Normal RBC MORPHOLOGY (BEAKER) (test hyhs=385) Normal [id number] 00:34:00 Test Item Value Reference Range Comments ETHANOL (BEAKER) (test xgjk=420) < mg/dL <=10 CREATINE KINASE (CK), TOTAL AND [id number] 00:22:00 Test Item Value Reference Range Comments CREATINE KINASE TOTAL (BEAKER) (test ydum=374) 628 U/L 40-250 CREATINE KINASE-MB (BEAKER) (test cvun=203) 2.5 ng/mL 0.0-4.9 CREATINE KINASE-MB INDEX (BEAKER) (test yepy=126) 0.4 % CK-MB Reference Range:<5 Normal5-10 Borderline>10 AbnormalRAPID DRUG SCREEN, [id number] 00:15:00 Test Item Value Reference Range Comments BARBITURATE URINE (BEAKER) (test nlxq=472) Negative Negative BENZODIAZEPINE SCREEN URINE (BEAKER) (test Negative Negative nutr=288) COCAINE (METAB.) SCREEN (BEAKER) (test epcr=4004) Negative Negative OPIATE SCREEN URINE (BEAKER) (test cgcr=414) Negative Negative CANNABINOID SCREEN URINE (BEAKER) (test wmka=016) Positive Negative AMPH/METHAMPH SCREEN (BEAKER) (test tefd=4096) Negative Negative PHENCYCLIDINE SCREEN URINE (BEAKER) (test qzcn=909) Negative Negative DRUG CUTOFF CONC.Cocaine 300 ng/mL Cannabinoid 50 ng/mLBenzodiazepine 200 ng/mLBarbiturate 200 ng/ mLPhencyclidine 25 ng/mLOpiate 300 ng/mLMethadone 300 ng/mLAmphetamine/ 1000 ng/mL MethamphetamineThis assay provides an unconfirmed qualitative test result for the clinical management of patients in emergency situations. Chain of custody not maintained. Some ijwj-xku-ecoyvqs medications, as well as adulterants, may cause inaccurate results. Clinical correlation should be applied. A more comprehensivedrug screen or confirmation of a detected drug may be performed upon request.ACETAMINOPHEN [id number] 00:12:00 Test Item Value Reference Range Comments ACETAMINOPHEN LEVEL (BEAKER) (test vphs=594) < ug/mL 10.0-30.0 URINALYSIS W/ [id number] 00:11:00 Test Item Value Reference Range Comments COLOR (BEAKER) (test xkid=474) Yellow CLARITY (BEAKER) (test ryyr=171) Clear SPECIFIC GRAVITY UA (BEAKER) (test ydat=463) 1.025 1.001-1.035 PH UA (BEAKER) (test xxid=373) 6.0 5.0-8.0 PROTEIN UA (BEAKER) (test sulw=902) Negative Negative GLUCOSE UA (BEAKER) (test nxeg=500) Negative Negative KETONES UA (BEAKER) (test nvlj=119) Negative Negative BILIRUBIN UA (BEAKER) (test uxos=919) Negative Negative BLOOD UA (BEAKER) (test xkjg=038) Negative Negative NITRITE UA (BEAKER) (test nxrb=402) Negative Negative LEUKOCYTE ESTERASE UA (BEAKER) (test ohek=756) Negative Negative UROBILINOGEN UA (BEAKER) (test dmbn=384) 0.2 mg/dL 0.2-1.0 BACTERIA (BEAKER) (test hvvi=010) Rare RBC UA-MANUAL (BEAKER) (test ztln=3541) <5 /HPF WBC UA-MANUAL (BEAKER) (test hoyb=9614) 10-20 /HPF SQUAMOUS EPITHELIAL MANUAL (BEAKER) (test <5 /HPF uzaf=7581) SOURCE(BEAKER) (test vuih=4325) HEPATIC FUNCTION [id number] 00:11:00 Test Item Value Reference Range Comments TOTAL PROTEIN (BEAKER) (test 8.5 gm/dL 6.0-8.5 Specimen slightly hemolyzed qsmr=609) ALBUMIN (BEAKER) (test 4.3 g/dL 3.5-5.0 Specimen slightly hemolyzed aypj=9087) BILIRUBIN TOTAL (BEAKER) (test 0.3 mg/dL 0.1-1.2 Specimen slightly hemolyzed part=128) BILIRUBIN DIRECT (BEAKER) (test 0.1 mg/dL 0.0-0.4 Specimen slightly hemolyzed rtqk=619) ALKALINE PHOSPHATASE (BEAKER) 98 U/L 30-115 (test elkj=365) AST (SGOT) (BEAKER) (test 32 U/L 5-40 Specimen slightly hemolyzed jjik=598) ALT (SGPT) (BEAKER) (test 24 U/L 5-50 Specimen slightly hemolyzed yaou=717) SALICYLATE [id number] 00:11:00 Test Item Value Reference Range Comments SALICYLATE LEVEL (BEAKER) (test lwfr=329) 1.7 mg/dL 20.0-30.0 BASIC METABOLIC [id number] 00:09:00 Test Item Value Reference Range Comments SODIUM (BEAKER) (test 142 meq/L 135-148 qssu=417) POTASSIUM (BEAKER) (test 4.0 meq/L 3.6-5.5 Specimen slightly ozny=337) hemolyzed CHLORIDE (BEAKER) (test 108 meq/L 98-106 narf=072) CO2 (BEAKER) (test 21 meq/L 20-29 ffik=664) BLOOD UREA NITROGEN 10 mg/dL 10-26 (BEAKER) (test koyb=387) CREATININE (BEAKER) (test 0.90 mg/dL 0.50-1.20 Specimen slightly cunj=620) hemolyzed GLUCOSE RANDOM (BEAKER) 90 mg/dL 70-110 (test uwat=592) CALCIUM (BEAKER) (test 9.5 mg/dL 8.5-10.5 vfqt=140) EGFR (BEAKER) (test 130 mL/min/1.73 sq m ESTIMATED GFR IS NOT ojmk=5834) ACCURATE CREATININE CLEARANCE IN PREDICTING GLOMERULAR FILTRATION RATE. ESTIMATED GFR IS NOT APPLICABLE FOR DIALYSIS PATIENTS.
[2019-07-28] MEDS ORDERED: NA CHLORIDE 0.9% 1,000 ML ONE (14:49)
[2019-07-28] MEDS ORDERED: ONDANSETRON 4 MG/2 ML VIAL ONE (14:49)
[2019-07-28 14:57] LABS: Absolute Lymphocytes (CBC) 1.4 K/uL (0.7-4.9); Basophils % 0.4 % (0-1.3); Hematocrit 42.7 % (39.6-49.0); Lymphocytes % 42.3 % (15.3-44.8); MPV 9.9 fL (7.6-11.3); RBC Red Blood Cell Count 4.38 M/uL (4.33-5.43)
[2019-07-28 15:04] LABS: Protime INR 1.02
[2019-07-28 15:27] LABS: ALT/SGPT 93 U/L (12-78); AST/SGOT 136 U/L (15-37); Albumin 3.7 g/dL (3.4-5.0); Alkaline Phosphatase 84 U/L (45-117); BUN Blood Urea Nitrogen 8 mg/dL (7-18); Bicarbonate 27 mmol/L (21-32); Bilirubin Direct 0.2 mg/dL (0-0.2); Bilirubin Total 0.4 mg/dL (0.2-1.0); Glucose Level 110 mg/dL (74-106); Potassium 4.2 mmol/L (3.5-5.1); Protein, Total 6.9 g/dL (6.4-8.2); Sodium Level 143 mmol/L (136-145)
[2019-07-28] MEDS ORDERED: ACT CHARCOAL/SORB 50 GM/240ML ONE (15:41)
[2019-07-28] MEDS ORDERED: ACETYLCYST 6,000 MG/30 ML VIAL ONE (15:48)
[2019-07-28] MEDS ORDERED: METOCLOPRAMIDE 10 MG/2mL INJ ONE (15:48)
[2019-07-28] MEDS ORDERED: DEXTROSE 5% IV ONE (17:00)
[2019-07-28] MEDS ORDERED: WATER IV ONE (17:00)
[2019-07-28] MEDS ORDERED: D5W IV ONE ×2 (17:00→21:00)
[2019-07-28] MEDS ORDERED: ACETYLCYSTEINE IV ONE ×3 (17:00→21:00)
[2019-07-28 17:04] LABS: Barbiturates NEGATIVE (NEGATIVE); Benzodiazepines NEGATIVE (NEGATIVE); Cocaine NEGATIVE (NEGATIVE); METHAMPHETAM NEGATIVE (NEGATIVE); Methadone NEGATIVE (NEGATIVE); Opiates NEGATIVE (NEGATIVE); Phencyclidine NEGATIVE (NEGATIVE); THC Cannibis POSITIVE (NEGATIVE)
[2019-07-28 17:11] LABS: Urine Blood NEGATIVE (NEG); Urine Glucose NEGATIVE (NEG); Urine Protein NEGATIVE (NEG)
--- NOTE | 2019-07-28 17:22 | ER ---
Nurse's Notes [facility] Name: Lizandro Miles Age: 24 yrs Sex: Male : 1995 Arrival Date: 07/28/2019 Time: 14:33 Bed 3 Private MD: Diagnosis: Overdose: Tylenol, Zoloft, Tazadone, Abilify;Depression Presentation: 07/28 14:33 Presenting complaint: EMS states: ALLEGED INGESTION OF UNKNOWN AMOUNT ABILIFY, bp TRAZODONE, AND ZOLOFT. Transition of care: patient was not received from another setting of care. Onset of symptoms was July 28, 2019 at 04:00. Risk Assessment: Do you want to hurt yourself or someone else? Patient reports desire/thoughts of hurting themselves or someone else. Provider notified. Initial Sepsis Screen: Does the patient meet any 2 criteria? No. Patient's initial sepsis screen is negative. Does the patient have a suspected source of infection? No. Patient's initial sepsis screen is negative. Care prior to arrival: IV initiated. 18 GA, in the right antecubital area, Glucose check: 120. 14:33 Method Of Arrival: EMS: [facility] bp 14:33 Acuity: RAFAEL 2 bp Triage Assessment: 14:36 General: Appears in no apparent distress. comfortable, Behavior is drowsy. Pain: Denies bp pain. EENT: No deficits noted. Neuro: Level of Consciousness is lethargic, Oriented to person, place, time, situation, Appropriate for age. Cardiovascular: No deficits noted. Respiratory: No deficits noted. GI: No signs and/or symptoms were reported involving the gastrointestinal system. : No signs and/or symptoms were reported regarding the genitourinary system. Derm: No deficits noted. Musculoskeletal: No deficits noted. Historical: - Allergies: 14:36 SEAFOOD; bp 14:36 Iodine; bp - Home Meds: 14:36 Unable to obtain [Active]; bp - PMHx: 14:36 Anxiety; Bipolar disorder; Depression; Schizophrenia; bp - Immunization history:: Adult Immunizations unknown. - Social history:: Smoking status: unknown. - Ebola Screening: : No symptoms or risks identified at this time. Screenin:40 Abuse screen: Denies threats or abuse. Denies injuries from another. Nutritional bp screening: No deficits noted. Tuberculosis screening: No symptoms or risk factors identified. Fall Risk None identified. Assessment: 14:35 Reassessment: [place] Poison Control Case #[id number]. recommends activated charcoal hb if alert and cooperative, tox workup, cardiac monitoring, and baseline EKG. Monitor for sedation, QT prolongation, and seizures. Dr. Roth notified of PC recommendations. 14:39 General: SEE TRIAGE NOTE. bp 15:55 Reassessment: MUCOMYST REQUESTED FROM PHARMACY. bp 16:45 Reassessment: MUCOMYST GTT STARTED, REPEAT INR AND ACETAMINOPHEN LEVELS DUE AT 1830. bp 17:46 Reassessment: ICU BED ASSIGNED. ADMIT COMPLETE. bp Vital Signs: 14:36 BP 134 / 98; Pulse 78; Resp 18; Temp 98; Pulse Ox 100% ; Weight 74.84 kg; bp 14:52 BP 126 / 78; Pulse 56; Resp 19; Pulse Ox 100% ; bp 15:57 BP 137 / 88; Pulse 103; Resp 20; Pulse Ox 100% ; bp 17:00 BP 107 / 65; Pulse 54; Resp 18; Pulse Ox 100% ; bp 17:44 BP 113 / 70; Pulse 68; Resp 17; Pulse Ox 100% ; bp ED Course: 14:30 Safety checks: Items removed: yes. Door open/sign placed on door: yes. Family/friend ms present: no. Sitter present: Yes. 14:33 Patient arrived in ED. bp 14:35 Triage completed. bp 14:36 Arm band placed on. bp 14:39 David Roth MD is Attending Physician. kdr 14:40 Patient has correct armband on for positive identification. Placed in gown. Bed in low bp position. Call light in reach. Side rails up X2. it security project manager on. Pulse ox on. NIBP on. 14:41 Maintain EMS IV. Dressing intact. Good blood return noted. Site clean \T\ dry. Gauge \T\ bp site: 18 GAUGE R AC. 14:42 Eric Ruiz, DAVID is Primary Nurse. bp 14:45 Safety checks: Items removed: yes. Door open/sign placed on door: yes. Family/friend ms present: no. Sitter present: Yes. 14:45 Inserted saline lock: 20 gauge in left antecubital area, using aseptic technique. Blood bp collected. 15:00 Safety checks: Items removed: yes. Door open/sign placed on door: yes. Family/friend ms present: no. Sitter present: Yes. 15:15 Safety checks: Items removed: yes. Door open/sign placed on door: yes. Family/friend ms present: no. Sitter present: Yes. 15:30 Safety checks: Items removed: yes. Door open/sign placed on door: yes. Family/friend ms present: no. Sitter present: Yes. 15:45 Safety checks: Items removed: yes. Door open/sign placed on door: yes. Family/friend ms present: no. Sitter present: Yes. 16:00 Safety checks: Items removed: yes. Door open/sign placed on door: yes. Family/friend ms present: no. Sitter present: Yes. 16:08 Pt sister at bedside at this time. ms 16:15 Safety checks: Items removed: yes. Door open/sign placed on door: yes. Family/friend ms present: yes. Sitter present: Yes. 16:27 safety checks are done every 15 min on paper. ms 16:38 attempted transfer to [facility]. bd 16:59 Urine collected: clean catch specimen, ricardo colored. ms 17:14 [address] ro[address] talked with dr maguire, pt will stay at [facility], and be bd admitted to icu. 17:18 Sinan Crook MD is Hospitalizing Provider. kdr 17:45 No provider procedures requiring assistance completed. Patient admitted, IV remains in bp place. Administered Medications: 14:50 Drug: NS 0.9% 1000 ml Route: IV; Rate: 1 bolus; Site: left antecubital; bp 15:50 Follow up: IV Status: Completed infusion; IV Intake: 1000ml bp 15:45 Drug: Charcoal Suspension 50 grams Route: PO; bp 17:47 Follow up: Response: No adverse reaction bp 15:48 Drug: Reglan 10 mg Route: IVP; Site: left antecubital; bp 16:57 Follow up: Response: Nausea is decreased bp 16:56 Drug: MucoMYST - Acetylcysteine 150 mg/kg {Note: RECD FROM PHARMACY.} Route: IV; Rate: bp calculated rate; Site: left antecubital; 17:47 Follow up: IV Status: Infusion continued upon admission bp 18:13 Follow up: IV Status: Completed infusion; IV Intake: 250ml bp 18:13 Drug: MucoMYST - Acetylcysteine 50 mg/kg Route: IV; Rate: calculated rate; Site: left bp antecubital; 18:20 Follow up: IV Status: Infusion continued upon admission bp 18:36 Drug: Promethazine 12.5 mg Route: IVP; Site: right antecubital; bp 18:37 Follow up: Response: No adverse reaction bp Intake: 15:50 IV: 1000ml; Total: 1000ml. bp 18:13 IV: 250ml; Total: 1250ml. bp Outcome: 17:21 Decision to Hospitalize by Provider. kdr 18:20 Admitted to ICU accompanied by nurse, accompanied by tech, via stretcher, room 6, with bp chart, Report called to ENRICO HERNANDEZ 18:20 Condition: stable 18:20 Instructed on the need for admit. 18:52 Patient left the ED. bp Signatures: Haleigh Navarro Kevin, MD MD kdr Villarreal, Maria ms Baxter, Heather, RN RN hb Peltier, Brian, RN RN bp Corrections: (The following items were deleted from the chart) 14:57 14:52 Pulse 56bpm; Resp 19bpm; Pulse Ox 100%; bp bp 16:10 14:08 Safety checks: Items removed: yes. Door open/sign placed on door: yes. ms Family/friend present: no. Sitter present: Yes. ms
--- NOTE | 2019-07-28 17:23 | EDPHYS ---
Physician Documentation [facility] Name: Lizandro Miles Age: 24 yrs Sex: Male : 1995 Arrival Date: 07/28/2019 Time: 14:33 Bed 3 Private MD: ED Physician David Medina HPI: 07/28 14:41 This 24 yrs old Black Male presents to ER via EMS with complaints of INGESTION, kdr Suicidal Ideation. 14:41 The patient presents to the emergency department with depression, over a , the kdr patient's child, the patient's father, a history of a suicide gesture, where the patient took pills/medications, Trazodone, Abilify and zoloft, suicide ideation. Onset: The symptoms/episode began/occurred this morning, The patient claims that the ingestion occurred between 3-4 AM today. Past psychiatric history: Prior diagnosis: depression. Associated signs and symptoms: Pertinent positives; depression, suicide ideation. Severity of symptoms: At their worst the symptoms were severe incapacitating in the emergency department the symptoms are unchanged. The patient has experienced similar episodes in the past, multiple times, The patient has tried to harm himself in the past including cutting, hanging and overdosing.. The patient has been recently seen by a physician: the patient's primary care provider, The patient was apparently given a 90 day supply of his medications recently. Historical: - Allergies: 14:36 SEAFOOD; bp 14:36 Iodine; bp - Home Meds: 14:36 Unable to obtain [Active]; bp - PMHx: 14:36 Anxiety; Bipolar disorder; Depression; Schizophrenia; bp - Immunization history:: Adult Immunizations unknown. - Social history:: Smoking status: unknown. - Ebola Screening: : No symptoms or risks identified at this time. ROS: 14:41 Constitutional: Negative for fever, chills, and weight loss, Eyes: Negative for injury, kdr pain, redness, and discharge, ENT: Negative for injury, pain, and discharge, Neck: Negative for injury, pain, and swelling, Cardiovascular: Negative for chest pain, palpitations, and edema, Respiratory: Negative for shortness of breath, cough, wheezing, and pleuritic chest pain, Abdomen/GI: Negative for abdominal pain, nausea, vomiting, diarrhea, and constipation, Back: Negative for injury and pain, : Negative for injury, bleeding, discharge, and swelling, MS/Extremity: Negative for injury and deformity, Skin: Negative for injury, rash, and discoloration, Neuro: Negative for headache, weakness, numbness, tingling, and seizure activity. Allergy/Immunology: Negative for hives, rash, and allergies, Endocrine: Negative for neck swelling, polydipsia, polyuria, polyphagia, and marked weight changes, Hematologic/Lymphatic: Negative for swollen nodes, abnormal bleeding, and unusual bruising. 14:41 Psych: Positive for depression, suicide gesture, suicidal ideation, Negative for auditory hallucinations, visual hallucinations, homicidal ideation. Exam: 14:41 Constitutional: This is a well developed, well nourished patient who is somnolent but kdr in no acute distress. Head/Face: Normocephalic, atraumatic. Eyes: Pupils equal round and reactive to light, extra-ocular motions intact. Lids and lashes normal. Conjunctiva and sclera are non-icteric and not injected. Cornea within normal limits. Periorbital areas with no swelling, redness, or edema. Neck: Trachea midline, no thyromegaly or masses palpated, and no cervical lymphadenopathy. Supple, full range of motion without nuchal rigidity, or vertebral point tenderness. No Meningismus. Chest/axilla: Normal chest wall appearance and motion. Nontender with no deformity. No lesions are appreciated. Cardiovascular: Regular rate and rhythm with a normal S1 and S2. No gallops, murmurs, or rubs. Normal PMI, no JVD. No pulse deficits. Respiratory: Lungs have equal breath sounds bilaterally, clear to auscultation and percussion. No rales, rhonchi or wheezes noted. No increased work of breathing, no retractions or nasal flaring. Abdomen/GI: Soft, non-tender, with normal bowel sounds. No distension or tympany. No guarding or rebound. No evidence of tenderness throughout. Back: No spinal tenderness. No costovertebral tenderness. Full range of motion. Skin: Warm, dry with normal turgor. Normal color with no rashes, no lesions, and no evidence of cellulitis. MS/ Extremity: Pulses equal, no cyanosis. Neurovascular intact. Full, normal range of motion. Neuro: Awake and alert, GCS 15, oriented to person, place, time, and situation. Cranial nerves II-XII grossly intact. Motor strength 5/5 in all extremities. Sensory grossly intact. Cerebellar exam normal. Normal gait. 14:41 Psych: Behavior/mood is cooperative, depressed, inappropriate for age, Affect is flat, Oriented to person, place, time, Patient having thoughts of suicide. Plan for suicide is OD on 90 days of medications Judgement / Insight is Vital Signs: 14:36 BP 134 / 98; Pulse 78; Resp 18; Temp 98; Pulse Ox 100% ; Weight 74.84 kg; bp 14:52 BP 126 / 78; Pulse 56; Resp 19; Pulse Ox 100% ; bp 15:57 BP 137 / 88; Pulse 103; Resp 20; Pulse Ox 100% ; bp 17:00 BP 107 / 65; Pulse 54; Resp 18; Pulse Ox 100% ; bp 17:44 BP 113 / 70; Pulse 68; Resp 17; Pulse Ox 100% ; bp MDM: 14:41 Data reviewed: vital signs, nurses notes, lab test result(s). Counseling: I had a kdr detailed discussion with the patient and/or guardian regarding: the historical points, exam findings, and any diagnostic results supporting the discharge/admit diagnosis, lab results. 17:18 ED course: D/w Dr. Mulligan at [facility] and General Store Manager. The patient does not appear to be kdr in a state requiring transfer to higher level of care at this time. They affirmed the current treatments underway (Mucomyst) and to follow glucose, INR, serum phosphorus and LFTs. They would hope to hear from us in the morning regarding progress and would expect to hear from us regarding transfer should the patient deteriorate precipitously. Dr. Crook was informed of our discussion.. 17:21 Patient medically screened. [facility] 07/28 14:40 Order name: Acetaminophen; Complete Time: 15:32 [facility] 07/28 14:40 Order name: Basic Metabolic Panel; Complete Time: 15:32 [facility] 07/28 14:40 Order name: CBC with Diff; Complete Time: 15:19 [facility] 07/28 14:40 Order name: ETOH Level; Complete Time: 16:29 [facility] 07/28 14:40 Order name: Hepatic Function; Complete Time: 15:32 [facility] 07/28 14:40 Order name: PT-INR; Complete Time: 15:19 [facility] 07/28 14:40 Order name: Ptt, Activated; Complete Time: 15:19 kdr 07/28 14:40 Order name: Salicylate; Complete Time: 16:29 kdr 07/28 14:40 Order name: Urine Drug Screen; Complete Time: 17:06 kdr 07/28 16:58 Order name: Urine Dipstick--Ancillary (enter results); Complete Time: 20:45 bd 07/28 17:15 Order name: PT-INR: FOR 1829; Complete Time: 20:45 bp 07/28 17:15 Order name: Acetaminophen: FOR 1829; Complete Time: 20:45 bp 07/28 14:40 Order name: EKG; Complete Time: 14:41 kdr 07/28 14:40 Order name: EKG - Nurse/Tech; Complete Time: 14:43 kdr 07/28 14:40 Order name: IV Saline Lock; Complete Time: 14:44 kdr 07/28 14:40 Order name: Labs collected and sent; Complete Time: 14:44 kdr 07/28 14:40 Order name: Urine Dipstick-Ancillary (obtain specimen); Complete Time: 16:59 kdr Administered Medications: 14:50 Drug: NS 0.9% 1000 ml Route: IV; Rate: 1 bolus; Site: left antecubital; bp 15:50 Follow up: IV Status: Completed infusion; IV Intake: 1000ml bp 15:45 Drug: Charcoal Suspension 50 grams Route: PO; bp 17:47 Follow up: Response: No adverse reaction bp 15:48 Drug: Reglan 10 mg Route: IVP; Site: left antecubital; bp 16:57 Follow up: Response: Nausea is decreased bp 16:56 Drug: MucoMYST - Acetylcysteine 150 mg/kg {Note: RECD FROM PHARMACY.} Route: IV; Rate: bp calculated rate; Site: left antecubital; 17:47 Follow up: IV Status: Infusion continued upon admission bp 18:13 Follow up: IV Status: Completed infusion; IV Intake: 250ml bp 18:13 Drug: MucoMYST - Acetylcysteine 50 mg/kg Route: IV; Rate: calculated rate; Site: left bp antecubital; 18:20 Follow up: IV Status: Infusion continued upon admission bp 18:36 Drug: Promethazine 12.5 mg Route: IVP; Site: right antecubital; bp 18:37 Follow up: Response: No adverse reaction bp Disposition: 07/28/19 17:21 Hospitalization ordered by Sinan Crook for Inpatient Admission. Preliminary diagnosis are Overdose: Tylenol, Zoloft, Tazadone, Abilify, Depression. - Bed requested for Intensive Care Unit. - Status is Inpatient Admission. bp - Condition is Serious. - Problem is new. - Symptoms are unchanged. UTI on Admission? No Critical care time excluding procedures: 17:25 Critical care time: Bedside Care: 30 minutes, Consultation: 15 minutes. Total time: 45 kdr minutes Signatures: Dispatcher [employer] EDMS Haleigh Navarro David Simons MD MD kdr Jc Fry, RUMPER-C RUMPER-Cla1 Eric Ruiz, RN RN bp Corrections: (The following items were deleted from the chart) 17:37 17:21 Hospitalization Ordered by Sinan Crook MD for Inpatient Admission. Preliminary bd diagnosis is Overdose: Tylenol, Zoloft, Tazadone, Abilify; Depression. Bed requested for Telemetry/MedSurg (Inpatient). Status is Inpatient Admission. Condition is Serious. Problem is new. Symptoms are unchanged. UTI on Admission? No. kdr 18:52 17:37 07/28/2019 17:21 Hospitalization Ordered by Sinan Crook MD for Inpatient bp Admission. Preliminary diagnosis is Overdose: Tylenol, Zoloft, Tazadone, Abilify; Depression. Bed requested for Intensive Care Unit. Status is Inpatient Admission. Condition is Serious. Problem is new. Symptoms are unchanged. UTI on Admission? No. bd
[2019-07-28] MEDS ORDERED: PROMETHAZINE INJ 25 MG/ML AMP ONE (18:35)
[2019-07-28] MEDS ORDERED: ONDANSETRON 4 MG/2 ML VIAL IV PRN (19:34)
[2019-07-28 19:39] LABS: Protime INR 1.25
[2019-07-28 19:47] LABS: Albumin 3.5 g/dL (3.4-5.0); Bilirubin Direct 0.2 mg/dL (0-0.2); Bilirubin Total 0.5 mg/dL (0.2-1.0); Protein, Total 6.9 g/dL (6.4-8.2)
[2019-07-28 20:29] VITALS: BMI 25.9
[2019-07-28] MEDS: D5 0.45 NS 1,000 ML IV SCH (20:46)
--- NOTE | 2019-07-29 01:41 | HP ---
Date of Admission: 07/28/2019 Chief Complaint: Suicide attempt, Tylenol overdose. History Of Present Illness: The patient is a 24-year-old male with past medical history of generaliz ed anxiety disorder, major depressive disorder, comes in with acute Tylenol overdose and suicide atte mpt. Patient is feeling depressed as he lost his daughter this month as well as the anniversary of t he of his papa, therefore in the middle of the night around 3 a.m. took a handful of Tylenol Ex tra Strength. It is unclear exactly what strength Tylenol he took. He estimates that he took approx imately 10 pills. He does admit to trying to harm himself as he felt depressed. Patient has had pre vious psychiatric inpatient stay when he was a teenager for another suicide attempt involving a car. Patient was taken to [facility] at that point by his mother. The patient's symptoms are constant, moderat e, progressively worsening. He did report some nausea. He was evaluated by EMS and Poison Control w as called at the site of pick pack worker, which was at [facility]. Patient's workup here at the ER reveale d an INR of 1.02, WBC was 3.4. Tox screen was positive for Tylenol level of 61. AST and ALT were el evated at 136 and 93. UDS was positive for marijuana. Alcohol level was negative. Patient was rece ntly seen by Psychiatry in June 2019, for suicidal ideation. When seen in the ER, the patient wa s asleep, but arousable, having multiple episodes of emesis, was given activated charcoal. Past Medical History: PTSD, depression, anxiety disorder, bipolar disorder, and at one time had also been diagnosed with schizophrenia. Surgical History: None. Allergies: NO KNOWN DRUG ALLERGIES. Medications: Abilify 2.5 mg daily, trazodone 50 mg at bedtime, and sertraline 50 mg daily. Social History: The patient had a daughter, who recently. Does have significant other w ith recent stressors at home, was also recently released from retirement. Has been in psychiatric facili ties previously as a teenager. Denies any tobacco use. Does smoke marijuana. Drinks alcohol on a r egular basis, but not a daily drinker. He drinks wine and liquor. Family History: States sister has history of psychiatric illnesses. Review of Systems: Ten-point system reviewed, negative except as per HPI. Physical Examination: Vital Signs: Blood pressure 134/98, pulse 78, respirations 18, temperature 98, O2 100% on room air. General: Awake, alert, and oriented x3, in some mild distress, ill-appearing male. HEENT: Normocephalic, atraumatic. PERRLA. EOMI. Dry mucous membranes. Oropharynx is clear. Conj unctivae are anicteric. Neck: Supple. No JVD. Trachea midline. CV: S1, S2. Regular rate and rhythm. Peripheral pulses present. Respiratory: Moving air well bilaterally. No wheezing or stridor. No use of accessory muscles. Gastrointestinal: Abdomen is soft, nontender, nondistended. Positive bowel sounds. Extremities: No clubbing, cyanosis, or edema. No calf tenderness. Neuro: Cranial nerves 2 through 12 intact grossly. No focal neurological deficit. Speech is normal . Skin: No rashes. Normal skin turgor. Psych: Mood is depressed. Affect is congruent with mood. Insight and judgment are poor. Laboratory Data: UA is negative tox screen. Salicylates are less than 1.7. Acetaminophen level is 60.8. UDS also positive for marijuana. Serum alcohol level is less than 3. Sodium 143, potassium 4 .2, chloride 111, CO2 of 27, BUN 8, creatinine 1.05, glucose 110, calcium 8.3, AST 136, ALT 93. INR is 1.02. WBC 3.4. H and H 14.5 and 42.7, platelets 175. Assessment: A 24-year-old male with, 1.Suicide attempt with drug overdose. Patient will be kept in the ICU with 1 on 1 sitter, and suici de precautions. The patient has previous history of psychiatric inpatient stay. He has multiple str essors with domestic issues as well as recent of his daughter. Patient also has history of dep ression. 2.Tylenol toxicity. Acetaminophen level is 60.8. We will start on an acetylcysteine treatment. Darren davis has received 2 doses. We will continue with 16-hour treatment. Time of ingestion was approxim ately 12 hours ago at 3 a.m. We will repeat Tylenol level in [address] Medina [facility] spoke with Dr. Mulligan from [facility], who is a heating and air conditioning mechanic and he does not recommend transfer at this time for Hepatology services. Does not want to be kept in loop and justino armstrong will keep him abreast of this situation as it develops including repeat Tylenol level and liver enz ymes. Patient's liver enzymes are mildly elevated at 136 and 93. We will recheck INR and LFTs. 3.Major depressive disorder, severe, recurrent, now with suicide attempt. Patient was on sertraline , has been seen by Dr. Padgett in the past. He is currently out of town. Patient will benefit fro m inpatient psychiatric transfer. We will consult social work. 4.Generalized anxiety disorder. 5.Bipolar disorder. 6.History of schizophrenia. 7.History of posttraumatic stress disorder. 8.Leukopenia. Plan: Admit patient to ICU, place as inpatient. Length of stay greater than 2 midnights. Transfer to inpatient psych facility once medically stable, may need transfer to [facility] if liver toxicity from Tylenol overdose worsening. /MODL Voice ID: [id number]
[2019-07-29] MEDS: D5 0.45 NS 1,000 ML IV SCH ×3 (03:34→19:34)
[2019-07-29 05:14] LABS: Absolute Lymphocytes (CBC) 1.5 K/uL (0.7-4.9); Basophils % 0.4 % (0-1.3); Hematocrit 43.2 % (39.6-49.0); Lymphocytes % 23.9 % (15.3-44.8); MPV 10.1 fL (7.6-11.3)
[2019-07-29 05:35] LABS: ALT/SGPT 89 U/L (12-78); AST/SGOT 87 U/L (15-37); Albumin 3.1 g/dL (3.4-5.0); Alkaline Phosphatase 76 U/L (45-117); BUN Blood Urea Nitrogen 7 mg/dL (7-18); Bicarbonate 25 mmol/L (21-32); Bilirubin Direct 0.2 mg/dL (0-0.2); Bilirubin Total 0.7 mg/dL (0.2-1.0); Glucose Level 106 mg/dL (74-106); Magnesium 1.9 mg/dL (1.8-2.4); Potassium 3.9 mmol/L (3.5-5.1); Protein, Total 6.1 g/dL (6.4-8.2); Sodium Level 142 mmol/L (136-145)
--- NOTE | 2019-07-29 15:57 | PN ---
Subjective: Currently, patient is lying in bed. He looks comfortable. He has no chest pain. No ab dominal pain. No fever, no chills. His family is at the bedside. Objective: Vital Signs: Blood pressure 129/68, respiratory rate 21, pulse 65, temperature 99.1. General: Patient is alert and oriented x3. Does not look in any distress. HEENT: Atraumatic, normocephalic. PERRLA. Oral mucosa is moist. Neck: Supple. No JVD. No carotid bruit. Chest: Clear to auscultation. Good air entry. Heart: Regular rate and rhythm. S1, S2 normal. No gallop or murmur. Abdomen: Soft, nontender. No masses. No hepatosplenomegaly. Positive bowel sounds. Extremities: No clubbing, cyanosis, or edema. No calf tenderness. Neurologic: Grossly intact. Cranial nerves exam 2 through 12 intact. Normal sensation. Normal ref lexes. Normal muscle strength. Laboratory Data: Today showed CBC was normal. Chemistry was normal except for chloride of 110, AST of 87, ALT of 89, total protein of 6.1. Assessment And Plan: This is a 24-year-old gentleman with history of bipolar disorder, generalized a nxiety disorder, schizophrenia, posttraumatic stress disorder, presented with suicide attempt with Ty lenol overdose. Patient received 2 doses of acetylcysteine in the ICU. His LFT was going down. He is fully awake and alert and he was able to have breakfast this morning. I discussed the case again with Dr. Mulligan from [facility] and he would like to observe the patient overnight and then t ransfer him to psych unit for suicidal ideation evaluation. 1.Major depressive disorder, recurrent with suicidal attempt currently. Patient was on sertraline i n the past. He will probably need inpatient psych transfer. We will that in the morning. 2.Generalized anxiety disorder. Psych eval tomorrow. 3.Leukopenia, most likely secondary to . 4.No need for deep venous thrombosis prophylaxis as the patient is young and he will be hopefully di scharged tomorrow. AMADOR/NICK Voice ID: [id number] Report ID: [id number]
[2019-07-30] MEDS: D5 0.45 NS 1,000 ML IV SCH (03:34)
[2019-07-30 03:53] VITALS: O2SAT 97
[2019-07-30 08:37] LABS: ALT/SGPT 176 U/L (12-78); AST/SGOT 118 U/L (15-37); Albumin 3.2 g/dL (3.4-5.0); Alkaline Phosphatase 74 U/L (45-117); BUN Blood Urea Nitrogen 6 mg/dL (7-18); Bicarbonate 27 mmol/L (21-32); Bilirubin Total 0.4 mg/dL (0.2-1.0); Glucose Level 93 mg/dL (74-106); Potassium 4.2 mmol/L (3.5-5.1); Protein, Total 6.2 g/dL (6.4-8.2); Sodium Level 143 mmol/L (136-145)
[2019-07-30 09:02] VITALS: TEMP 98.3
--- NOTE | 2019-07-30 11:47 | EKG ---
Test Date: 2019-07-28 Test Time: 14:46:46 Inventory Control Manager: ROSELIA MEASUREMENT RESULTS: Intervals: Rate: 65 PA: 136 QRSD: 78 QT: 356 QTc: 370 Aniwa: P: 17 PA: 136 QRS: 33 T: -14 INTERPRETIVE STATEMENTS: Normal sinus rhythm with sinus arrhythmia Nonspecific T wave abnormality Abnormal ECG Compared to ECG 06/22/2019 15:50:27 T-wave abnormality now present Electronically Signed On 07-30-19 11:42:35 DINING ROOM SERVER by Kenton Gilbert
[2019-07-30 13:52] VITALS: BP 130/82
--- NOTE | 2019-07-31 09:10 | DS ---
Date of Discharge: 07/30/2019 Discharge Diagnoses: 1.Suicidal attempt. 2.Tylenol overdose, resolved. 3.Elevated liver enzymes. 4.Major depressive disorder. 5.Generalized anxiety disorder. 6.Leukopenia. 7.History of attention deficit and hyperactivity disorder. Procedures: None. Consult: Hepatology at [facility] in [place], Dr. Mulligan. For history of present illness please refer to our admission note by Dr. Crook. Hospital Course: Initially, patient presented to the emergency room due to taking handful of Tylenol Extra Strength around 3 a.m. the night before, 10 pills, trying to commit suicide at that time. Upo n further evaluation, patient was found to have slightly elevated liver enzymes with AST of 136, ALT of 93. Urine drug screen was positive for marijuana. Alcohol level was negative. Patient was seen by Psychiatry in June 2019 for suicidal ideation. His acetaminophen level was upon admission 60. 8. Patient was started on acetylcysteine treatment. Dr. Crook consulted with Dr. Mulligan at [facility], who is a senior care provider who advised to treat patient locally and not transfer to [facility] . Patient's Tylenol level improved overnight and the next morning at 4 a.m. was down to 3.2. Other level is pending this morning. His chemistry continued to show normal bilirubin, but his LFTs after went down yesterday to 87 and 89 for AST and ALT respectively, today they went up again to 118 and 17 6 with INR continuing to be normal. Patient had normal bilirubin throughout. Today he was evaluated by inpatient psychiatric and did not think he needs to be admitted to the inpatient psych unit and raúl lei advised that he will be able to discharge home, continue his home medication with Abilify, trazod one, and Zoloft. I strongly advised patient to see primary care physician tomorrow morning. We will give him a list with the available doctor to get his labs checked and make sure his LFT is not getti ng any worse. Patient understands that his again this morning went up instead of down, so me concern about that and would like patient to be seen immediately by primary care physician and dayami ck his LFTs and if they continue to go up, then he may be referred to see a GI specialist. Discharge Condition: Stable. Discharge Diet: Regular. Discharge Followup: With primary care physician on Wednesday morning with CMP or LFTs. Discharge Activity: As tolerated. Discharge Physical Examination: Vital Signs: Blood pressure is 120/68, respiratory rate is 14, puls e 59, temperature 98.3, saturating 97% on room air. General: Patient is alert and oriented x3. Does not look in any distress. HEENT: Atraumatic, normocephalic. PERRLA. Oral mucosa is moist. Neck: Supple. No JVD. No carotid bruits. Chest: Clear to auscultation. Good air entry. Heart: Regular rate and rhythm. S1, S2 normal. No gallop or murmur. Abdomen: Soft, nontender. bowel sounds. Extremities: No clubbing, no cyanosis, no edema. No calf tenderness. Neurologic: Grossly intact. Cranial nerve exam 2 through 12 intact. Normal sensation. Normal refl exes. Normal muscle strength. Prescriptions: Continue home medication with trazodone, Zoloft, Abilify if available. I am not givi ng patient any new prescription. AMADOR/NICK Voice ID: [id number] Report ID: [id number]
== END 2019-07-30 13:47 | disposition home or self-care (01) | DRG 918 ==
LOC: ER 14:31 → ERHOLD 17:33 → 3RD-ICU 18:19
PROVIDERS: ADMIT Family Medicine; ATTEND Internal Medicine
DX: T39.1X2A Poisoning by 4-Aminophenol derivatives, intentional self-harm, initial encounter (principal); F33.9 Major depressive disorder, recurrent, unspecified; F41.1 Generalized anxiety disorder; F31.9 Bipolar disorder, unspecified; F20.9 Schizophrenia, unspecified; D72.819 Decreased white blood cell count, unspecified
CPT/HCPCS: 36415; 80048; 80053; 80076; 80307; 80320; 80329; 81003; 82248; 82947; 83735; 85025; 85610; 85730; 93005; 99285; J0132; J2405; J2550; J2765; J7030; J7060; J7799